=== PATIENT | female | born 1990 | race Caucasian/White ===

== ENCOUNTER 2018-07-22 11:07 | Outpatient (CLI) | payer OTHER ==
--- NOTE | 2018-07-22 11:54 | ULT ---
OB ULTRASOUND: HISTORY: Third trimester OB ultrasound. TECHNIQUE: Multiple longitudinal and transverse images of an intrauterine obtained using multi hertz c urvilinear transducer. Real-time, color flow and spectral waveform Doppler analysis used to evaluate the fetus. FINDINGS: Images demonstrate the fetus to be in a cephalic presentation. Biometrics: Biparietal diameter 78 mm, 31 weeks 1 day Head circumference 290 mm, 32 weeks 6 days Abdominal circumference 296 mm, 33 weeks 5 days Femur length 64 mm, 33 weeks 0 days Composite age equals 32 weeks 5 days with an estimated date of delivery of 09/11/2018. Estimated weight is 2115 gm. Amniotic fluid index measures 11.8 cm. IMPRESSION: Viable intrauterine with an anteriorly positioned placenta and the fetus in a cephalic pres entation. Transcribed Date/Time: 07/22/2018 12:05 PM
== END 2018-07-22 11:08 | disposition home or self-care (01) ==
LOC: BICULT 11:07
PROVIDERS: ATTEND Family Medicine
DX: Z34.80 Encounter for supervision of other normal pregnancy, unspecified trimester (principal); Z3A.32 32 weeks gestation of pregnancy
CPT/HCPCS: 76805

== ENCOUNTER 2018-09-17 11:34 | Inpatient (IN) | payer OTHER ==
[~2018-09-17 11:34] MED LIST: Bupivacaine 0.25% HCL 30 ML VIAL ONE
[2018-09-17] MEDS ORDERED: HYDROcodone/Acetaminophen 5/325 mg Tablet PO PRN (12:03)
[2018-09-17] MEDS ORDERED: Ibuprofen 800 MG TAB PO PRN (12:03)
[2018-09-17] MEDS ORDERED: Lidocaine 1% (PF) 30 ML VIAL SC PRN (12:03)
[2018-09-17] MEDS ORDERED: Butorphanol Tartrate 1 MG/ML VIAL SLOW IVP PRN (12:03)
[2018-09-17] MEDS ORDERED: Promethazine HCl 25 MG/ML VIAL IM PRN (12:03)
[2018-09-17] MEDS ORDERED: NS / Oxytocin 40 units/1000ml 1,000 ML IV PRN (12:03)
[2018-09-17] MEDS ORDERED: Ondansetron PF 4 MG/2 ML Vial IVP PRN (12:03)
[2018-09-17] MEDS ORDERED: Methylergonovine 0.2 MG/ML VIAL IM PRN (12:03)
[2018-09-17] MEDS ORDERED: Carboprost 250 MCG/ML AMP IM PRN (12:03)
[2018-09-17] MEDS ORDERED: Acetaminophen 500 MG TAB PO PRN (12:03)
[2018-09-17] MEDS ORDERED: Misoprostol 200 MCG TAB PR PRN (12:03)
[2018-09-17 12:24] VITALS: BMI 40.5
[2018-09-17] MEDS: Lactated Ringer's 1,000 ML IV SCH ×2 (12:43→17:10)
[2018-09-17 13:00] LABS: Hemoglobin 11.7 g/dL (12.0-16.0); Mean Corpuscular HGB CONC 33.5 g/dL (32.0-36.0); Mean Corpuscular Hemoglobin 29.2 pg (27.0-31.0); Mean Corpuscular Volume 87.2 fL (78.0-98.0); Mean Platelet Volume 8.7 fL (7.4-10.4); Platelet Count 252 thou/uL (130-400); RBC Distribution Width 13.2 % (11.5-14.5); Red Blood Cell (RBC) Count 3.99 mill/uL (4.20-5.40); White Blood Cell (WBC) Count 11.9 thou/uL (4.8-10.8)
[2018-09-17] MEDS: NS w/ Oxytocin 10 units 500 ML IV SCH (13:08)
[2018-09-17 13:51] LABS: Hep B Surf Ag Non-Reactive S/CO (NonReactive); Syphilis Antibody Nonreactive (Nonreactive); Syphilis Antibody Index 0.03 S/CO (<1.00 Non-Reactive)
[2018-09-18] MEDS: NS w/ Oxytocin 10 units 500 ML IV SCH (03:59)
--- NOTE | 2018-09-18 07:54 | PDOC.EVN ---
Event Note - Event Note Event Note: Came to assess patient. Has been on 16 of pitocin all night. Denies pain, states it feels like mild cramping. FHT 135, category I. SVE /-2. AROM with clear fluid. No complications.Continue pitocin. Epidural when uncomfortable.
[2018-09-18] MEDS ORDERED: Fentanyl 4 mcg/Bup 0.1% Cadd 100 ML ONE (08:07)
[2018-09-18] MEDS ORDERED: diphenhydrAMINE 50 MG/ML VIAL IVP PRN (09:13)
[2018-09-18] MEDS ORDERED: ePHEDrine/0.9% NaCl/PF SYRINGE 50 mg/10 ml SLOW IVP PRN (09:13)
[2018-09-18] MEDS ORDERED: Acetaminophen 325 MG TAB PO PRN (09:13)
[2018-09-18] MEDS ORDERED: Naloxone HCl 0.4 mg/ml Vial IVP PRN ×2 (09:13)
[2018-09-18] MEDS ORDERED: Ondansetron PF 4 MG/2 ML Vial IVP PRN (09:13)
[2018-09-18] MEDS ORDERED: Promethazine HCl 25 MG/ML VIAL IM PRN (09:13)
[2018-09-18] MEDS ORDERED: Lactated Ringer's 500 ML IV PRN (09:13)
[2018-09-18] MEDS ORDERED: Communication Order-Pharmacy FS SCH (09:15)
[2018-09-18] MEDS ORDERED: Fentanyl 4 mcg/Bupivacaine 0.1% Cassette 100 ML EPIDURAL SCH (09:15)
[2018-09-18] MEDS ORDERED: Milk Of Magnesia 30 ML UDCUP PO PRN (17:13)
[2018-09-18] MEDS ORDERED: Measles/Mumps/Rubella 10 MCG/0.5 ML VIAL SC ONE (17:13)
[2018-09-18] MEDS ORDERED: Benzocaine-Menthol 82.5 ML CAN TOP PRN (17:13)
[2018-09-18] MEDS ORDERED: Lanolin Ointment 7 GM TUBE TOP PRN (17:13)
[2018-09-18] MEDS ORDERED: HYDROcodone/Acetaminophen 5/325 mg Tablet PO PRN (17:13)
[2018-09-18] MEDS ORDERED: Adacel (T-DAP) 0.5 ML SYRINGE IM ONE (17:13)
[2018-09-18] MEDS ORDERED: diphenhydrAMINE 25 MG CAP PO PRN (17:13)
[2018-09-18] MEDS ORDERED: Bisacodyl 10 MG SUPP PR PRN (17:13)
[2018-09-18] MEDS ORDERED: Preparation H Ointment 28 GM TUBE PR PRN (17:13)
[2018-09-18] MEDS ORDERED: Ferrous Sulfate 325 MG TAB PO SCH (18:00)
[2018-09-18] MEDS: NS / Oxytocin 40 units/1000ml 1,000 ML IV SCH ×2 (18:02→19:52)
[2018-09-18] MEDS: Lactated Ringer's 1,000 ML IV SCH (19:38)
[2018-09-18] MEDS ORDERED: Acetaminophen 650 MG Suppository PR PRN (19:38)
[2018-09-18] MEDS ORDERED: Sodium Chloride 0.9% 10 ML ONE (20:00)
[2018-09-18] MEDS: Ibuprofen 800 MG TAB PO SCH (21:14)
[2018-09-18] MEDS: Docusate Calcium (SURFAK) 240 MG CAP PO SCH (21:14)
[2018-09-19 06:00] LABS: Mean Corpuscular HGB CONC 32.3 g/dL (32.0-36.0); Mean Corpuscular Hemoglobin 28.4 pg (27.0-31.0); Mean Corpuscular Volume 87.7 fL (78.0-98.0); Mean Platelet Volume 8.6 fL (7.4-10.4); Platelet Count 208 thou/uL (130-400); RBC Distribution Width 13.2 % (11.5-14.5); Red Blood Cell (RBC) Count 3.54 mill/uL (4.20-5.40); White Blood Cell (WBC) Count 12.8 thou/uL (4.8-10.8)
[2018-09-19] MEDS: Ibuprofen 800 MG TAB PO SCH ×2 (06:01→14:09)
[2018-09-19] MEDS ORDERED: Ferrous Sulfate 325 MG TAB PO SCH (08:00)
--- NOTE | 2018-09-19 08:20 | PDOC.OPDEL ---
OB Operative/Delivery Note Delivery Dr/Surgeon: Antoni Pre-Delivery Diagnosis: elective induction Procedure/Post Delivery Dx: spontaneous vaginal delivery Weeks gestation: 39 Anesthesia: epidural - Findings A Sex: male Weight: 9 lb 15 oz - 1 min: 8 - 5 min: 9 - Additional Findings/Plan Placenta delivered: spontaneous Repaired Obstetrical Laceration: 2nd degree Estimated blood loss: 450 Compilations/Other Findings: Routine vaginal delivery of LGA baby. Laceration repair with 2.0 vicryl in standard running fashion with excellent hemostasis. Post delivery plan: routine recovery
--- NOTE | 2018-09-19 08:21 | PDOC.PP ---
Post Progress Note Post Day #: 1 Subjective: Doing well. No pain. Lochia normal. Working on . PO intake tolerated: yes Flatus: yes Ambulation: yes Vital Signs (12 hours) Temp Pulse Resp BP Pulse Ox 09/19/18 08:18 98.7 F 93 20 113/63 97 09/19/18 04:35 98.2 F 96 18 120/70 09/19/18 00:20 98.0 F 86 18 122/65 09/18/18 21:00 97.8 F 92 18 130/76 09/18/18 20:25 98.4 F 96 18 125/61 98 Weight Weight 251 lb - Physical Examination General: NAD Cardiovascular: no m/r/g, RRR Respiratory: clear to auscultation bilaterally, non-labored breathing Abdominal: + bowel sounds, lochia, no distention, appropriately TTP Result Diagrams: 09/19/18 05:20 Additional Labs: Post Labs Blood Type O POSITIVE 09/17/18 12:52 Hep Bs Antigen Non-Reactive S/CO (NonReactive) 09/17/18 12:52 (1) Vaginal delivery Code(s): O80 - ENCOUNTER FOR FULL-TERM UNCOMPLICATED DELIVERY Status: Acute - Assessment/Plan Routine PP care May D/C home at 24 hours if baby doing well F/U with me in 6 weeks
[2018-09-19] MEDS: Docusate Calcium (SURFAK) 240 MG CAP PO SCH (09:00)
[2018-09-19 17:19] VITALS: BP 122/89; TEMP 97.6
== END 2018-09-19 17:50 | disposition home or self-care (01) | DRG 807 ==
LOC: L&D 11:34 → 3SW 09-18 21:04
PROVIDERS: ADMIT Family Medicine; ATTEND Family Medicine
PROC: 10907ZC Drainage of Amniotic Fluid, Therapeutic from Products of Conception, Via Natural or Artificial Opening (ICD-10-PCS; principal; 2018-09-18)
PROC: 10E0XZZ Delivery of Products of Conception, External Approach (ICD-10-PCS; 2018-09-18)
PROC: 0KQM0ZZ Repair Perineum Muscle, Open Approach (ICD-10-PCS; 2018-09-18)
DX: O36.63X0 Maternal care for excessive fetal growth, third trimester, not applicable or unspecified (principal); Z37.0 Single live birth; O70.1 Second degree perineal laceration during delivery; Z3A.39 39 weeks gestation of pregnancy
CPT/HCPCS: 36415; 51702; 85027; 86780; 86850; 86900; 86901; 87340; J2590; S0020